=== PATIENT | female | born 1985 | race Caucasian/White ===

== ENCOUNTER 2020-06-01 13:47 | Emergency (ER) | payer MEDICAID, OTHER ==
[~2020-06-01] VITALS: Ht 177.8 cm; Wt 66.7 kg
[2020-06-01] MEDS ORDERED: LORAZEPAM 0.5 MG TABLET ONE (14:52)
[2020-06-01] MEDS ORDERED: LORAZEPAM 1 MG TABLET PO ONE (15:00)
[2020-06-01] MEDS ORDERED: IV NS 0.9% 1,000 ML BAG IV ONE (15:00)
[2020-06-01 15:05] LABS: BASOPHILS # (AUTO) 0.2 /CMM (0.0-0.2); BASOPHILS % (AUTO) 2.1 % (0.0-2.0); EOSINOPHILS % (AUTO) 0.1 % (0.0-6.0); HEMATOCRIT 44 % (33-45); LYMPHOCYTES # (AUTO) 1.4 /CMM (0.8-4.8); LYMPHOCYTES % (AUTO) 16.6 % (20.0-44.0); MEAN CORPUSCULAR HGB CONC 34 g/dl (31.0-36.0); MEAN CORPUSCULAR VOLUME 99 fL (82-100); MONOCYTES # (AUTO) 0.4 /CMM (0.1-1.30); MONOCYTES % (AUTO) 4.7 % (2.0-12.0); NEUTROPHILS # (AUTO) 6.6 /CMM (1.8-8.9); NEUTROPHILS % (AUTO) 76.5 % (43.0-81.0); PLATELET COUNT (AUTO) 221 /CMM (150-450); RED BLOOD CELL COUNT(AUTO) 4.44 MIL/uL (4.0-5.2); WHITE BLOOD COUNT (AUTO) 8.6 K/uL (4.3-11.0)
[2020-06-01 15:12] LABS: CREATININE 0.7 mg/dL (0.6-1.3); POTASSIUM 3.8 mmol/L (3.5-5.1)
[2020-06-01 15:17] LABS: ALBUMIN 3.9 g/dL (3.4-5.0); BILIRUBIN,DIRECT 0.1 mg/dL (0.0-0.2); BILIRUBIN,TOTAL 0.2 mg/dL (0.2-1.0); TOTAL PROTEIN, SERUM 8.4 g/dL (6.4-8.2)
--- NOTE | 2020-06-01 15:30 | NUR ---
PATIENT CAME IN WITH ANXIETY ATTACK WITH . SRI LANKAN SPEAKING. IV DONE ON RIGHT ARM20G ATIVAN AND NS ADMINISTERED ORDERED. V/S WITHIN NORMAL RANGE, PATIENT IS SLEEPING. BY THE BED SIDE.
[2020-06-01] MEDS ORDERED: LORA-259 PO (17:45)
--- NOTE | 2020-06-01 17:49 | NUR ---
IV removed. Catheter intact and site benign. Pressure and 4x4 applied to site. No bleeding noted.Patient discharged to home in stable condition. Written and verbal after care instructions given. Patient verbalizes understanding of instruction.
[2020-06-01 17:50] VITALS: BP 129/82
== END 2020-06-01 17:50 | disposition home or self-care (01) ==
LOC: ER 13:55
DX: F10.10 Alcohol abuse, uncomplicated (principal); F41.9 Anxiety disorder, unspecified; Z79.899 Other long term (current) drug therapy; Y90.9 Presence of alcohol in blood, level not specified
CPT/HCPCS: 36415; 80048; 80076; 83690; 85025; 96360; 99283; J7030

== ENCOUNTER 2021-03-29 21:11 | Emergency (ER) | payer MEDICAID ==
[~2021-03-29] VITALS: Ht 175.3 cm; Wt 77.1 kg
[~2021-03-29 21:11] MED LIST: LORA-259 PO
[2021-03-29 21:30] VITALS: BP 141/82
== END 2021-03-29 22:49 ==
LOC: ER 21:11
DX: Z02.89 Encounter for other administrative examinations (principal); F10.129 Alcohol abuse with intoxication, unspecified; F41.9 Anxiety disorder, unspecified; F17.200 Nicotine dependence, unspecified, uncomplicated; Z79.899 Other long term (current) drug therapy; Y90.9 Presence of alcohol in blood, level not specified

== ENCOUNTER 2021-05-20 14:07 | Emergency (ER) | payer MEDICAID ==
[~2021-05-20] VITALS: Ht 170.2 cm; Wt 64.0 kg
--- NOTE | 2021-05-20 14:56 | NUR ---
DR SWAIN AT BEDSIDE
--- NOTE | 2021-05-20 15:00 | NUR ---
URINE SAMPLE COLLECTED AND SENT TO LAB
--- NOTE | 2021-05-20 15:15 | NUR ---
DECK WORKER AT BEDSIDE
[2021-05-20] MEDS ORDERED: IV NS 0.9% 1,000 ML BAG IV ONE (15:30)
[2021-05-20 15:53] LABS: BASOPHILS % (AUTO) 0.6 % (0.0-2.0); EOSINOPHILS % (AUTO) 0.2 % (0.0-6.0); HEMATOCRIT 44 % (33-45); HEMOGLOBIN 15.1 g/dL (11.5-14.8); LYMPHOCYTES # (AUTO) 1.3 K/uL (0.8-4.8); MEAN CORPUSCULAR HGB CONC 34 g/dl (31.0-36.0); MEAN CORPUSCULAR VOLUME 99 fL (82-100); MONOCYTES # (AUTO) 0.3 K/uL (0.1-1.30); MONOCYTES % (AUTO) 5.8 % (2.0-12.0); NEUTROPHILS % (AUTO) 65.4 % (43.0-81.0); PLATELET COUNT (AUTO) 225 K/uL (150-450); RED BLOOD CELL COUNT(AUTO) 4.46 MIL/uL (4.0-5.2); WHITE BLOOD COUNT (AUTO) 4.6 K/uL (4.3-11.0)
[2021-05-20 16:05] LABS: CALCIUM, SERUM 8.5 mg/dL (8.5-10.1); CREATININE 0.7 mg/dL (0.6-1.3); POTASSIUM 3.6 mmol/L (3.5-5.1)
[2021-05-20 16:11] LABS: ALBUMIN 4.1 g/dL (3.4-5.0); BILIRUBIN,DIRECT 0.1 mg/dL (0.0-0.2); BILIRUBIN,TOTAL 0.3 mg/dL (0.2-1.0); TOTAL PROTEIN, SERUM 8.8 g/dL (6.4-8.2)
[2021-05-20] MEDS ORDERED: LORA-259 PO (16:39)
[2021-05-20] MEDS ORDERED: ONDA4TAB5 PO (16:39)
[2021-05-20 17:09] VITALS: BP 132/87
--- NOTE | 2021-05-20 17:09 | NUR ---
Patient discharged to home in stable condition. Written and verbal after care instructions given. Patient verbalizes understanding of instruction.
== END 2021-05-20 17:10 | disposition home or self-care (01) ==
LOC: ER 14:16
DX: F10.229 Alcohol dependence with intoxication, unspecified (principal); F41.9 Anxiety disorder, unspecified; F17.200 Nicotine dependence, unspecified, uncomplicated; Z79.899 Other long term (current) drug therapy; Y90.8 Blood alcohol level of 240 mg/100 ml or more
CPT/HCPCS: 36415; 71045; 80048; 80076; 80307; 80320; 82962; 85025; 93005; 96360; 99285; J7030; G0480

== ENCOUNTER 2021-06-28 13:10 | Emergency (ER) | payer MEDICAID, OTHER ==
[~2021-06-28] VITALS: Ht 170.2 cm; Wt 63.5 kg
[~2021-06-28 13:10] MED LIST changes: +ONDA4TAB5 PO
[2021-06-28] MEDS ORDERED: KETOROLAC TROMETHAMINE 15 MG/ML VIAL ONE (16:01)
[2021-06-28] MEDS ORDERED: ACETAMINOPHEN 325 MG TABLET ONE (16:02)
[2021-06-28] MEDS ORDERED: HYDR-4209 PO (16:02)
[2021-06-28] MEDS: KETOROLAC TROMETHAMINE INJ 30 MG/ML VIAL IM ONE (16:09)
[2021-06-28] MEDS: ACETAMINOPHEN 325 MG TABLET PO ONE (16:09)
[2021-06-28 16:54] VITALS: BP 124/82
== END 2021-06-28 16:54 | disposition home or self-care (01) ==
LOC: ER 13:18
DX: S42.401A Unspecified fracture of lower end of right humerus, initial encounter for closed fracture (principal); M25.531 Pain in right wrist; F41.9 Anxiety disorder, unspecified; Z79.899 Other long term (current) drug therapy; V00.311A Fall from snowboard, initial encounter; Y93.23 Activity, snow (alpine) (downhill) skiing, snowboarding, sledding, tobogganing and snow tubing; Y92.89 Other specified places as the place of occurrence of the external cause; Y99.8 Other external cause status
CPT/HCPCS: 29125; 73080; 73090; 73110; 96372; 99284; J1885

== ENCOUNTER 2024-04-29 13:02 | Emergency (ER) | payer MEDICAID, OTHER ==
[~2024-04-29] VITALS: Ht 172.7 cm; Wt 76.7 kg
[~2024-04-29 13:02] MED LIST changes: +HYDR-4209 PO
[2024-04-29 13:10] VITALS: TEMP 98.5
[2024-04-29 14:17] LABS: BASOPHILS % (AUTO) 0.5 % (0.0-2.0); HEMATOCRIT 39 % (33-45); HEMOGLOBIN 13.7 g/dL (11.5-14.8); LYMPHOCYTES # (AUTO) 1.6 K/uL (0.8-4.8); LYMPHOCYTES % (AUTO) 18.9 % (20.0-44.0); MEAN CORPUSCULAR HEMOGLOBIN 33 PG (26.0-33.0); MEAN CORPUSCULAR HGB CONC 35 g/dl (31.0-36.0); MEAN CORPUSCULAR VOLUME 94 fL (82-100); MONOCYTES # (AUTO) 0.4 K/uL (0.1-1.30); MONOCYTES % (AUTO) 4.4 % (2.0-12.0); NEUTROPHILS # (AUTO) 6.3 K/uL (1.8-8.9); NEUTROPHILS % (AUTO) 76.2 % (43.0-81.0); PLATELET COUNT (AUTO) 217 K/uL (150-450); RED BLOOD CELL COUNT(AUTO) 4.14 MIL/uL (4.0-5.2); RED CELL DISTRIBUTION WIDTH 13.3 % (11.5-15.0); WHITE BLOOD COUNT (AUTO) 8.3 K/uL (4.3-11.0)
[2024-04-29 14:46] LABS: CALCIUM, SERUM 8.1 mg/dL (8.5-10.1); CARBON DIOXIDE 31 mmol/L (21-32); CHLORIDE 104 mmol/L (98-107); CREATININE 0.5 mg/dL (0.6-1.3); GLUCOSE 107 mg/dL (74-106); POTASSIUM 3.2 mmol/L (3.5-5.1); SODIUM SERUM 141 mmol/L (136-145); UREA NITROGEN, BLOOD 7 mg/dL (7-18)
[2024-04-29 14:49] LABS: ALANINE AMINOTRANSFERASE 40 U/L (12-78); ALBUMIN 3.1 g/dL (3.4-5.0); ALCOHOL, BLOOD 421 mg/dL (0-10); ALKALINE PHOSPHATASE 90 U/L (46-116); ASPARTATE AMINOTRANSFERASE 44 U/L (15-37); BILIRUBIN,DIRECT 0.1 mg/dL (0.0-0.2); BILIRUBIN,TOTAL 0.2 mg/dL (0.2-1.0); TOTAL PROTEIN, SERUM 7.3 g/dL (6.4-8.2)
[2024-04-29 14:51] LABS: ACETAMINOPHEN <10 ug/ml (10-30); SALICYLATE 1.1 mg/dL (2.8-20.0)
[2024-04-29 15:00] VITALS: BP 145/91; O2SAT 97
[2024-04-29 15:56] LABS: APPEARANCE,URINE CLEAR (CLEAR); BILIRUBIN,URINE NEGATIVE (NEGATIVE); BLOOD, URINE 1+ Ery/uL (NEGATIVE); COLOR,URINE YELLOW (YELLOW); KETONES,URINE NEGATIVE (NEGATIVE); LEUKOCYTE ESTERASE ,URINE TRACE (NEGATIVE); NITRITE, URINE NEGATIVE (NEGATIVE); PROTEIN,URINE NEGATIVE (NEGATIVE); UGLUCOSE NEGATIVE (NEGATIVE); UROBILINOGEN,URINE 0.2 EU/dL (0.2)
[2024-04-29 15:58] LABS: PREGNANCY TEST URINE QUAL NEGATIVE (NEGATIVE)
[2024-04-29 16:17] LABS: AMPHETAMINE, URINE NEGATIVE (NEGATIVE); BARBITURATE, URINE NEGATIVE (NEGATIVE); BENZODIAZEPINE, URINE NEGATIVE (NEGATIVE); CANNABINOID, URINE NEGATIVE (NEGATIVE); COCCAINE, URINE NEGATIVE (NEGATIVE); OPIATE, URINE NEGATIVE (NEGATIVE); PHENCYCLIDINE SCREEN,URINE NEGATIVE (NEGATIVE)
[2024-04-29 16:23] LABS: ADD URINE CULTURE YES; BACTERIA,URINE Few /HPF (None Seen)
== END 2024-04-29 19:58 | disposition left against medical advice (07) ==
LOC: ER 13:05
DX: F10.129 Alcohol abuse with intoxication, unspecified (principal); R53.83 Other fatigue; F17.200 Nicotine dependence, unspecified, uncomplicated; F41.9 Anxiety disorder, unspecified; Y90.8 Blood alcohol level of 240 mg/100 ml or more
CPT/HCPCS: 80048-TC; 80076-TC; 81001; 84703-TC; 85025-TC; 87086-TC; G0480

== ENCOUNTER 2024-04-30 00:26 | Emergency (ER) | payer OTHER ==
[~2024-04-30] VITALS: Ht 172.7 cm; Wt 68.0 kg
[2024-04-30 00:31] VITALS: TEMP 98.6
[2024-04-30 06:52] VITALS: BP 119/84; O2SAT 99
== END 2024-04-30 06:52 | disposition home or self-care (01) ==
LOC: ER 00:28
DX: F10.129 Alcohol abuse with intoxication, unspecified (principal); F17.200 Nicotine dependence, unspecified, uncomplicated; F41.9 Anxiety disorder, unspecified; Y90.9 Presence of alcohol in blood, level not specified
CPT/HCPCS: 82962-TC

== ENCOUNTER 2024-04-30 10:19 | Emergency (ER) | payer OTHER ==
[~2024-04-30] VITALS: Ht 167.6 cm; Wt 68.0 kg
[2024-04-30 11:02] LABS: BASOPHILS # (AUTO) 0.1 K/uL (0.0-0.2); BASOPHILS % (AUTO) 0.7 % (0.0-2.0); HEMATOCRIT 42 % (33-45); HEMOGLOBIN 14.6 g/dL (11.5-14.8); LYMPHOCYTES # (AUTO) 1.1 K/uL (0.8-4.8); LYMPHOCYTES % (AUTO) 11.5 % (20.0-44.0); MEAN CORPUSCULAR HEMOGLOBIN 33 PG (26.0-33.0); MEAN CORPUSCULAR HGB CONC 35 g/dl (31.0-36.0); MEAN CORPUSCULAR VOLUME 95 fL (82-100); MONOCYTES # (AUTO) 0.4 K/uL (0.1-1.30); MONOCYTES % (AUTO) 3.6 % (2.0-12.0); NEUTROPHILS # (AUTO) 8.4 K/uL (1.8-8.9); NEUTROPHILS % (AUTO) 84.2 % (43.0-81.0); PLATELET COUNT (AUTO) 236 K/uL (150-450); RED BLOOD CELL COUNT(AUTO) 4.48 MIL/uL (4.0-5.2); RED CELL DISTRIBUTION WIDTH 13.4 % (11.5-15.0)
[2024-04-30 11:17] LABS: APPEARANCE,URINE CLEAR (CLEAR); BILIRUBIN,URINE NEGATIVE (NEGATIVE); BLOOD, URINE 2+ Ery/uL (NEGATIVE); COLOR,URINE YELLOW (YELLOW); KETONES,URINE NEGATIVE (NEGATIVE); LEUKOCYTE ESTERASE ,URINE NEGATIVE (NEGATIVE); NITRITE, URINE NEGATIVE (NEGATIVE); PROTEIN,URINE 1+ mg/dl (NEGATIVE); UGLUCOSE NEGATIVE (NEGATIVE); UROBILINOGEN,URINE 0.2 EU/dL (0.2)
[2024-04-30 11:27] LABS: WBC,URINE 0-2 /HPF (0-3)
[2024-04-30 11:28] LABS: ADD URINE CULTURE NO; BACTERIA,URINE 1+ /HPF (None Seen); SQUAMOUS EPITHELIAL CELL,UR 0-2 /HPF (None Seen)
[2024-04-30 11:29] LABS: AMPHETAMINE, URINE NEGATIVE (NEGATIVE); BARBITURATE, URINE NEGATIVE (NEGATIVE); BENZODIAZEPINE, URINE NEGATIVE (NEGATIVE); CANNABINOID, URINE NEGATIVE (NEGATIVE); COCCAINE, URINE NEGATIVE (NEGATIVE); OPIATE, URINE NEGATIVE (NEGATIVE); PHENCYCLIDINE SCREEN,URINE NEGATIVE (NEGATIVE)
[2024-04-30 11:32] LABS: ALBUMIN 3.7 g/dL (3.4-5.0); BILIRUBIN,DIRECT 0.1 mg/dL (0.0-0.2); BILIRUBIN,TOTAL 0.3 mg/dL (0.2-1.0); CALCIUM, SERUM 8.3 mg/dL (8.5-10.1); CREATININE 0.7 mg/dL (0.6-1.3); TOTAL PROTEIN, SERUM 8.1 g/dL (6.4-8.2)
[2024-04-30 11:46] LABS: POTASSIUM 3.5 mmol/L (3.5-5.1)
[2024-04-30 16:00] VITALS: BP 138/89; TEMP 97.9; O2SAT 99
== END 2024-04-30 17:30 | disposition left against medical advice (07) ==
LOC: ER 10:25
DX: F10.129 Alcohol abuse with intoxication, unspecified (principal); F17.200 Nicotine dependence, unspecified, uncomplicated; F41.9 Anxiety disorder, unspecified; R45.851 Suicidal ideations; Y90.8 Blood alcohol level of 240 mg/100 ml or more
CPT/HCPCS: 36415; 80048-TC; 80076-TC; 81001; 85025-TC; G0480

== ENCOUNTER 2024-11-04 14:49 | Emergency (ER) | payer OTHER, MEDICAID ==
[~2024-11-04] VITALS: Ht 167.6 cm; Wt 61.2 kg
[2024-11-04] MEDS ORDERED: PHENOBARBITAL SODIUM 130 MG/ML VIAL ONE ×2 (15:30→16:40)
[2024-11-04] MEDS: PHENOBARBITAL SODIUM 130 MG/ML VIAL IV ONE ×2 (15:53→16:49)
[2024-11-04] MEDS: IV NS 0.9% 1,000 ML BAG IV ONE (15:53)
[2024-11-04] MEDS ORDERED: CHLO25CA22 PO (17:25)
[2024-11-04 17:47] VITALS: BP 126/69; TEMP 98; O2SAT 97
== END 2024-11-04 17:47 ==
LOC: ER 14:53
DX: F10.139 Alcohol abuse with withdrawal, unspecified (principal); F17.200 Nicotine dependence, unspecified, uncomplicated; F41.9 Anxiety disorder, unspecified; R25.1 Tremor, unspecified; Y90.9 Presence of alcohol in blood, level not specified
CPT/HCPCS: 99284; 96374; 96361; 96376; J2560 ×2; J7030